=== PATIENT | female | born 1955 | race Caucasian/White ===

== ENCOUNTER → 2022-08-13 09:49 | Outpatient (BNVA) | payer MEDICARE, MEDICAID, SELFPAY | PROVIDERS: PCP Pediatrics; Visit Provider Neurological Surgery | DX: M48.061 Spinal stenosis, lumbar region without neurogenic claudication (principal); M54.16 Radiculopathy, lumbar region; M54.12 Radiculopathy, cervical region | CPT/HCPCS: 99202 ==

== ENCOUNTER 2022-10-09 08:53 | Day surgery (SDC) | payer MEDICARE, MEDICAID, SELFPAY ==
--- NOTE | 2022-09-26 | ECG_ITS ---
Test Reason : preop Blood Pressure : / mmHG Vent. Rate : 068 BPM Atrial Rate : 068 BPM P-R Int : 172 ms QRS Dur : 074 ms QT Int : 390 ms P-R-T Axes : 021 024 052 degrees QTc Int : 414 ms Normal sinus rhythm Normal ECG When compared with ECG of 26-APR-2015 17:50, No significant change was found Referred By: Karley Mohr Electronically Signed By:ISAC VILLA MD
[2022-09-26 12:11] VITALS: BP 117/73; PULSE 78; RESP 16; O2SAT 98
[2022-09-26 12:16] VITALS: BMI 31.6
--- NOTE | 2022-09-26 12:32 | HO.ANESPROP2 ---
Documented by User: Karley Mohr NP 10/08/22 11:45 HPI - Anesthesia Eval Consult details Narrative: 66yo F for Left L5 Laminectomy Lumbar Decompression (Foraminotomy), 10/09/22 [facility] left scar drainage from ear surgery since 2016. + pain, no swelling, redness. Eval by ENT 09/23/22. CT scan pending. Abx 3 weeks ago for URI/Conjunctivitis. No further symptoms. PMFSH Active Problems Active Problems: All Active Problems (Updated 09/26/22 @ 12:24 by Noemi Langston RN) Neuroforaminal stenosis of lumbar spine (Acute) Lumbar radiculopathy (Acute) Cervical radiculopathy (Acute) Past Medical History Medical History (Updated 09/26/22 @ 12:24 by Noemi Langston RN) Hemorrhoids HTN (hypertension) Low back pain Restless leg syndrome Swallowing difficulty Thyroid disease Family History Family history of problems with anesthesia: No Surgical History Surgical History (Updated 09/26/22 @ 12:05 by Noemi Langston RN) History of surgery Hx of bilateral cataract extraction Hx of colonoscopy S/P hysterectomy History of Problems with Anesthesia: No Social History Social History Are you a primary career representative to a significant other at home: No Do you presently have visiting nurse or other home services: No Patient Tobacco Use Status: Current everyday Tobacco user Tobacco use type: Cigarette Cigarette Packs Per Day: 1 Cigarettes Per Day: 20.0 Years Smoked: 55 Use of substances other than those prescribed or required for medical reasons: No Have you been hit, kicked, punched, or otherwise hurt by someone within the past year? If so, by whom?: No Are you DNR?: No Advance Directives: No Advance Directives Information Provided: Yes Advance Directives on File: No Recently lost weight without trying: No Nutrition Risks: Difficulty swallowing Meds Allergies Allergy/AdvReac Type Severity Reaction Status Date / Time No Known Allergies Allergy Verified 09/26/22 12:07 Home Medications Medication Instructions Recorded Confirmed Last Taken Type lisinopril 10 1 tab PO DAILY 09/26/22 09/26/22 Unknown History mg-hydrochlorothiazide 12.5 mg tablet methimazole 5 mg tablet 5 mg PO DAILY 09/26/22 09/26/22 Unknown History oxycodone 5 mg tablet 5 - 10 mg PO Q6H PRN Pain 09/26/22 09/26/22 Unknown History Exam Exam Date and Time: September 26, 2022 1232 Height,Weight and Vital Signs: Height 5 ft 1 in Weight 75.8 kg Last Vital Signs Pulse 78 09/26/22 12:11 Resp 16 09/26/22 12:11 BP 117/73 09/26/22 12:11 Pulse Ox 98 09/26/22 12:11 O2 Del Method Room Air 09/26/22 12:11 Pertinent Lab Results Pertinent Lab Results: Lab Results 09/26/22 09/26/22 Range/Units 12:57 12:57 WBC 11.4 H (4.8-10.8) X10*3/uL RBC 5.28 (4.20-5.50) X10*6/uL Hgb 15.3 (12.0-16.0) g/dl Hct 47.1 H (37.0-47.0) % MCV 89.2 (80.0-98.0) fL MCH 29.0 (27.0-33.0) pg MCHC 32.5 (31.0-35.0) g/dl RDW 14.5 (11.0-16.0) % Plt Count 301 (160-400) X10*3/uL MPV 10.1 (9.4-12.3) fL Absolute Nucleated RBC 0.000 (0.0-0.012) X10*3/uL Nucleated RBC % (auto) 0.0 (0.0-0.2) /100WBC Sodium 140 (135-145) mmol/L Potassium 4.0 (3.3-5.1) mmol/L Chloride 103 (96-108) mmol/L Carbon Dioxide 26 (22-29) mmol/L Anion Gap 15 (12-20) BUN 13 (9-16) mg/dL Creatinine 0.88 (0.5-1.4) mg/dL Estim Creat Clear Calc 57.7 Estimated GFR > 60 Random Glucose 91 (60-115) mg/dL Calcium 9.9 (8.4-10.2) mg/dL Narrative Narrative: EKG 08/2022 Vent. Rate : 068 BPM ? ? Atrial Rate : 068 BPM ?? P-R Int : 172 ms? QRS Dur : 074 ms ? ? QT Int : 390 ms ? ? ? P-R-T Axes : 021 024 052 degrees ?? QTc Int : 414 ms ? Normal sinus rhythm Normal ECG When compared with ECG of 26-APR-2015 17:50, No significant change was found Airway Mallampati Class: III TM Dist: >3cm Neck ROM: Limited (d/t pain) Denture: Upper Loose/Missing/Broken Teeth: Yes (Lower molars missing) Heart: RRR Lungs: CTAB Assessment and Plan Assessment Anesthesia Assessment: Anesthesia Plan Discussed, Smoking Cess. Discussed and PAT Visit Final Anesthetic Review Family History of Problems with Anesthesia: No History of Problems with Anesthesia: No Documented by User: Jamil Zambrano MD 10/09/22 09:03 [facility] Past Medical History Medical History (Updated 09/26/22 @ 12:24 by Noemi Langston RN) Hemorrhoids HTN (hypertension) Low back pain Restless leg syndrome Swallowing difficulty Thyroid disease Surgical History Surgical History (Updated 09/26/22 @ 12:05 by Noemi Langston RN) History of surgery Hx of bilateral cataract extraction Hx of colonoscopy S/P hysterectomy Social History Social History Are you a primary career representative to a significant other at home: No Do you presently have visiting nurse or other home services: No Patient Tobacco Use Status: Current everyday Tobacco user Tobacco use type: Cigarette Cigarette Packs Per Day: 1 Cigarettes Per Day: 20.0 Years Smoked: 55 Use of substances other than those prescribed or required for medical reasons: No Have you been hit, kicked, punched, or otherwise hurt by someone within the past year? If so, by whom?: No Are you DNR?: No Advance Directives: No Advance Directives Information Provided: Yes Advance Directives on File: No Recently lost weight without trying: No Nutrition Risks: Difficulty swallowing Meds Allergies Allergy/AdvReac Type Severity Reaction Status Date / Time No Known Allergies Allergy Verified 09/26/22 12:07 Home Medications Medication Instructions Recorded Confirmed Last Taken Type lisinopril 10 1 tab PO DAILY 09/26/22 09/26/22 Unknown History mg-hydrochlorothiazide 12.5 mg tablet methimazole 5 mg tablet 5 mg PO DAILY 09/26/22 09/26/22 Unknown History oxycodone 5 mg tablet 5 - 10 mg PO Q6H PRN Pain 09/26/22 09/26/22 Unknown History Assessment and Plan Final Anesthetic Review ASA Class: III Final Preanesthetic Review: No Changes in Pt Med Stat, Meds/Allgs Chart Reviewed, Consent Obtained/Reviewed and Anes Risks/Benef Reviewed Patient Risk: Intermediate Procedure Risk: Intermediate Anesthetic Plan Anesthetic Plan: GA and Agree w/ Assess. and Plan Disposition: Standard PACU
[2022-09-26 13:59] LABS: Hematocrit 47.1 % (37.0-47.0); Hemoglobin 15.3 g/dl (12.0-16.0); Mean Corpuscular HGB Conc 32.5 g/dl (31.0-35.0); Mean Corpuscular Volume 89.2 fL (80.0-98.0); Mean Platelet Volume 10.1 fL (9.4-12.3); Platelet Count 301 X10*3/uL (160-400); Red Blood Count 5.28 X10*6/uL (4.20-5.50); Red Cell Distribution Width 14.5 % (11.0-16.0); White Blood Count 11.4 X10*3/uL (4.8-10.8)
[2022-09-26 14:49] LABS: Anion Gap 15 (12-20); Blood Urea Nitrogen 13 mg/dL (9-16); Calcium 9.9 mg/dL (8.4-10.2); Carbon Dioxide 26 mmol/L (22-29); Chloride 103 mmol/L (96-108); Creatinine Clr Calc Pharmacy 57.7; Estimated Glomerular Filt Rate > 60; Glucose Random 91 mg/dL (60-115); Sodium 140 mmol/L (135-145)
[2022-10-09] VITALS (10 sets, daily range): BP systolic 115–132; BP diastolic 49–81; PULSE 56–89; RESP 16–20; TEMP 36.1–37; O2SAT 6–100; BMI 31.6
--- NOTE | ~2022-10-09 | FL_ITS ---
EXAMINATION: XR FLUOROSCOPY WITH IMAGES CLINICAL INFORMATION: L5 laminectomy lumbar decompression, left. COMPARISON: None available. TECHNIQUE: Fluoroscopy Supervised By: Dr. Ari Herrera. Fluoroscopy Time: 0.0 minutes. Cumulative Dose: 1.92 mGy. DAP: 0.429 Gycm2. Images: 2. FINDINGS: There are 2 lateral digital images of lumbar spine revealing posterior probe at the L5-S1 disc level. Visualized vertebral heights and disc heights are normal. FL/FL guidance in OR IMPRESSION: Posterior probe at the L5-S1 disc level. Fluoroscopy guidance was provided to referring physician during surgery.
--- OUTSIDE RECORDS SUMMARY | 2022-10-09 08:59 | XMS_ITS | Continuity of Care Document ---
Author Name Unknown Organization [facility] Address [address] [place] [address] Dr [address] [place] [address]- Care Team Providers Care Meter Attendant Name Role Phone Imelda Morris MD Primary Care Physician [place] [facility] [id number] Date(s): 05/26/22 - 06/02/[address] [place], [place] [address] Encounter Diagnosis Skin irritation(Discharge Diagnosis) - 05/26/22 Attending Physician: Armen Baker Referring Physician: Kylah DEVI, Brett Ugalde Allergies, Adverse Reactions, Alerts No Known Allergies Immunizations Given and Recorded Vaccine Date Status Refusal Reason tetanus/diphtheria/pertussis, acel(Tdap) 01/20/08 Given Medications ??? meclizine for vertigo ??? meclizine for vertigo, By Mouth, Refills 0, Maintenance, 10/04/19 14:19:00 EDT, Supply Start Date: 10/04/19 Status: Ordered Allopurinol 300 mg, By Mouth, Daily, Rx by [facility], Refills 0, Maintenance,07/13/15 8:58:38 Start Date: 07/13/15 Status: Ordered Flonase 50 mcg/inh nasal spray 1 sprays, Nares, Both, 2 times a day, # 16 Gm, 0 Refills, Maintenance, 03/10/19 13:40:00 EST, [place], [facility], 1 sprays Nares, Both 2 times a day, 160, cm, 03/10/19 13:16:00 EST, Height, 72.4, kg, 03/10/19 13:16:00 EST, Dry Weight Start Date: 03/10/19 Status: Ordered Golytely - oral powder for reconstitution See Instructions, complete on day before procedure, # 4,000 mL, 0 Refills, Maintenance, 05/21/20 9:09:00 EDT, REC Powder, [facility]/pharmacy #[id number], Partial fill upon patient request if the prescription is for a schedule II opioid drug., complete on day befo... Start Date: 05/21/20 Status: Ordered hydrochlorothiazide-lisinopril 12.5 mg-10 mg oral tablet 1 tablet, By Mouth, Daily, # 30 tablet, 5 Refills, Maintenance, 04/20/17 8:26:23, Tablet, 1 tablet By Mouth Daily Start Date: 04/20/17 Stop Date: 05/20/17 Status: Ordered hydrocortisone 2.5% topical cream 1 application, Topically, 2 times a day, for 14 days, # 30 Gm, 1 Refills, Acute 06/23/22 8:59:00 EDT, 05/26/22 8:59:00 EDT, Cream, [facility]/pharmacy #[id number], Partial fill upon patient request if the prescription is for a schedule II opioid drug., 1 applicati... Start Date: 05/26/22 Stop Date: 06/23/22 Status: Ordered loratadine 10 mg oral tablet 10 mg, 1, tablet, By Mouth, Daily, # 30 tablet, Refills 0, Tot. Refills 0, Maintenance, 07/06/17 13:16:32 EDT, Route to Pharmacy Electronically, [id number], [facility]/pharmacy #[id number] Start Date: 07/06/17 Stop Date: 08/05/17 Status: Ordered [place] 0.65% nasal spray 2 sprays, Nares, Both, 4 times a day, # 1 each, 0 Refills, Maintenance, 05/31/18 11:12:25 EDT, 2 sprays Nares, Both 4 times a day Start Date: 05/31/18 Status: Ordered Omeprazole = 20 mg, By Mouth, Daily, Rx by Dr. Jensen (GI), 0 Refills, Maintenance, 07/13/15 9:43:17 Start Date: 07/13/15 Status: Ordered oxyCODONE 5 mg oral capsule By Mouth, 0 Refills, Maintenance, 10/04/19 14:18:00 EDT, Partial fill upon patient request Start Date: 10/04/19 Status: Ordered Topamax 25 mg oral tablet 1 tablet = 25 mg, By Mouth, Daily, Rx by [facility], 0 Refills, Maintenance, 07/13/15 9:36:43 Start Date: 07/13/15 Status: Ordered Ventolin HFA 108 mcg/inh inhalation aerosol with adapter 2 puffs, Inhalation, Every 6 hours, PRN Wheezing/Shortness of Breath, # 1 each, 3 Refills, Maintenance, 05/18/17 10:19:04 Start Date: 05/18/17 Status: Ordered Voltaren 1% topical gel = 2 Gm, Topically, 4 times a day, # 100 Gm, 3 Refills, Maintenance, 11/23/19 9:08:00 EDT, Gel, [id number], 2 Gm Topically 4 times a day, 154.94, cm, 11/23/19 8:33:00 EDT, Height, 74.7, kg, 11/19/19 18:41:00 EDT, Dry Weight Start Date: 11/23/19 Status: Ordered Zithromax Z-Charlie 250 mg oral tablet 1 pack/packet, By Mouth, Once, as directed on package labeling, # 6 tablet, 0 Refills, Soft Stop, 10/02/20 10:44:00 EDT, Tablet, Partial fill upon patient request if the prescription is for a schedule II opioid drug. 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 Chronic back pain Confirmed Active Chronic headaches Confirmed Active Fibromyalgia Confirmed Active GERD (gastroesophageal reflux disease) Confirmed Active Gout Confirmed Active Hypertension Confirmed Active Prediabetes Confirmed Active Depression with anxiety Confirmed Active Obese class I Confirmed Active SALLY, refusing CPAP Confirmed Active Restless leg syndrome Confirmed Active Colonoscopy - due in 2018 Confirmed Active Tobacco use Confirmed Active Diagnosis Diagnosis Type Effective Dates Health Status inical Service Informant Skin irritation Discharge Diagnosis 05/26/22 Vital Signs Most recent to oldest [Reference Range]: 1 Height 154.9 cm (05/26/22 8:43 AM) Weight 77.6 kg (05/26/22 8:43 AM) Pulse Rate [55-90 bpm] 82 bpm (05/26/22 8:43 AM) Body Mass Index [18.5-24.99 kg/m2] 32.34 kg/m2 *>HHI* (05/26/22 8:43 AM) Blood Pressure [90-138/55-84 mm Hg] 127/ 68mm Hg (05/26/22 8:43 AM) Respiratory Rate [16-30 br/min] 17 br/mi n (05/26/22 8:43 AM) Temperature [96.8-100.4 DegF] 97.7 DegF (05/26/22 8:43 AM) Temperature Route Temporal (05/26/22 8:43 AM) Social History Social History Type Response Smoking Status Current some day smo ker; Type: Cigarettes; Other: quit 06/18/15; Number of years: 47; entered on: 10/10/15 Sex Patient Care team information Care Team Personnel Name: Gabrielle Albert RN Position: [facility] RN Member Role: Primary Care Nurse Name: Imelda Morris MD Position: [facility] Outreach Member Role: PCP Address: Address: [address] [place] [address]- Name: Sage Leon RN Position: [facility] RN Member Role: Primary Care Nurse Care Team Related Persons Name: CHRIS GLEASON Address: [place] [address]
--- OUTSIDE RECORDS SUMMARY | 2022-10-09 08:59 | XMS_ITS | Continuity of Care Document ---
Author Name Unknown Organization [facility] Address [address] [place] [address]- Care Team Providers Care Referral Rn Name Role Phone Imelda Morris MD [facility] Care [id number] Date(s): [facility]/05/[facility] - 08/12/19 [facility] [address] [place] [address]- [facility] Attending Physician: Lavern JAIN, Emile Cortes Referring Physician: Imelda Morris MD Allergies, Adverse Reactions, Alerts Substance Reaction Severity Status NKA Active Immunizations Given and Recorded Vaccine Date Status Refusal Reason tetanus/diphtheria/pertussis, acel(Tdap) 01/20/08 Given Medications Allopurinol 300 mg, By Mouth, Daily, Rx by [facility], Refills 0, Maintenance,07/13/15 8:58:38 Start Date: 07/13/15 Status: Ordered Azithromycin 5 Day Dose Pack 250 mg oral tablet 1 pack/packet, By Mouth, Once, # 6 tablet, 0 Refills, Soft Stop, 03/12/18 12:03:30 EST, Tablet Start Date: 03/12/18 Status: Ordered Buprenorphine See Instructions, 20 mg transdermal patch - changing every 7 days, 0 Refills, Maintenance, 198:41:31 EST Start Date: 01/17/19 Status: Ordered Flonase 50 mcg/inh nasal spray 1 sprays, Nares, Both, 2 times a day, # 16 Gm, 0 Refills, Maintenance, 03/10/19 13:40:00 EST, [place], [id number], 1 sprays Nares, Both 2 times a day, 160, cm, 03/10/19 13:16:00 EST, Height, 72.4, kg, 03/10/19 13:16:00 EST, Dry Weight Start Date: 03/10/19 Status: Ordered fluticasone 50 mcg/inh nasal spray 1 sprays, Nares, Both, 2 times a day, # 16 Gm, 11 Refills, Maintenance, 01/09/16 9:44:38, [place], 1 sprays Nares, Both 2 times a day Start Date: 01/09/16 Status: Ordered hydrochlorothiazide-lisinopril 12.5 mg-10 mg oral tablet 1 tablet, By Mouth, Daily, # 30 tablet, 5 Refills, Maintenance, 04/20/17 8:26:23, Tablet, 1 tablet By Mouth Daily Start Date: 04/20/17 Stop Date: 05/20/17 Status: Ordered loratadine 10 mg oral tablet 10 mg, 1, tablet, By Mouth, Daily, # 30 tablet, Refills 0, Tot. Refills 0, Maintenance, 07/06/17 13:16:32 EDT, Route to Pharmacy Electronically, [id number], [facility]/pharmacy #[id number] Start Date: 07/06/17 Stop Date: 08/05/17 Status: Ordered naproxen 500 mg oral tablet 1 tablet = 500 mg, By Mouth, 2 times a day, for 10 days, # 20 tablet, 0 Refills, Acute 08/15/19 15:19:00 EDT, 08/05/19 15:19:00 EDT, Tablet, [facility]/pharmacy #[id number], 160, cm, 08/05/19 15:04:00 EDT, Height, 72.4, kg, 03/10/19 13:16:00 EST, Dry Weight Start Date: 08/05/19 Stop Date: 08/15/19 Status: Ordered [place] 0.65% nasal spray 2 sprays, Nares, Both, 4 times a day, # 1 each, 0 Refills, Maintenance, 05/31/18 11:12:25 EDT, 2 sprays Nares, Both 4 times a day Start Date: 05/31/18 Status: Ordered Omeprazole = 20 mg, By Mouth, Daily, Rx by Dr. Jensen (GI), 0 Refills, Maintenance, 07/13/15 9:43:17 Start Date: 07/13/15 Status: Ordered Topamax 25 mg oral tablet 1 tablet = 25 mg, By Mouth, Daily, Rx by [facility], 0 Refills, Maintenance, 07/13/15 9:36:43 Start Date: 07/13/15 Status: Ordered Ventolin HFA 108 mcg/inh inhalation aerosol with adapter 2 puffs, Inhalation, Every 6 hours, PRN Wheezing/Shortness of Breath, # 1 each, 3 Refills, Maintenance, 05/18/17 10:19:04 Start Date: 05/18/17 Status: Ordered Problem List Condition Effective Dates Status Health Status Inform ant Warthin's tumor of parotid s /p resection(Confirmed) Active Chronic back pain(Confirmed) Active Chronic headaches(Confirmed) Active Fibromyalgia(Confirmed) Active GERD (gastroesophageal reflu x disease)(Confirmed) Active Gout(Confirmed) Active Hypertension(Confirmed) Active Prediabetes(Confirmed) Active Depression with anxiety(Confirmed) Active SALLY, refusing CPAP(Confirmed) Active Restless leg syndrome(Confirmed) Active Colonoscopy - due in 2018(Confirmed) Active Tobacco use(Confirmed) Active Vital Signs Most recent to oldest [Reference Range]: 1 Height 160.00 cm (08/05/19 3:04 PM) Oxygen Saturation [94-100 %] 98 % (08/05/19 3:04 PM) Pulse Rate [55-90 bpm] 88 bpm (08/05/19 3:04 PM) Blood Pressure [90-138/55-84 mm Hg] 104/ 66mm Hg (08/05/19 3:04 PM) Respiratory Rate [16-30 br/min] 20 br/mi n (08/05/19 3:04 PM) Temperature [96.8-100.4 DegF] 98.3 DegF (08/05/19 3:04 PM) Mode of Delivery (Oxygen) Room air (08/05/19 3:04 PM) Blood pressure sites Arm, left (08/05/19 3:04 PM) Temperature Route Temporal (08/05/19 3:04 PM) Social History Social History Type Response Smoking Status Current some day smo ker; Type: Cigarettes; Other: quit 06/18/15; Number of years: 47; entered on: 10/10/15 Sex
--- OUTSIDE RECORDS SUMMARY | 2022-10-09 08:59 | XMS_ITS | Continuity of Care Document ---
Author Name Unknown Organization [facility] Address [address] [place] [address]- Care Team Providers Care Farm Tractor Operator Name Role Phone Imelda Morris MD Primary Care Physician [place] [facility] [place](s): 10/02/20 - 10/09/20 [facility] [address] [place], [place] [address] Attending Physician: Stewart Casanova MD Referring Physician: Imelda Morris MD Allergies, Adverse [...] Maintenance,07/13/15 8:58:38 Start Date: 07/13/15 Status: Ordered codeine-guaifenesin 6.3 mg-100 mg/5 mL oral liquid 7.5 mL, By Mouth, Every 6 hours, PRN for cough, # 120 mL, 0 Refills, Acute 10/10/20 10:44:00 EDT, 10/02/20 10:43:00 EDT, Liquid, Partial fill upon patient request if the prescription is for a schedule II opioid drug. Start Date: 10/02/20 Stop Date: 10/10/20 Status: Ordered Flonase 50 mcg/inh nasal spray 1 sprays, Nares, Both, 2 times a day, # 16 Gm, 0 Refills, Maintenance, 03/10/19 13:40:00 EST, [place], [facility]/pharmacy #[id number], 1 sprays Nares, Both 2 times a day, 160, cm, 03/10/19 13:16:00 EST, Height, 72.4, kg, 03/10/19 13:16:00 EST, Dry Weight Start Date: 03/10/19 Status: Ordered Golytely - oral powder for reconstitution See Instructions, complete on day before procedure, # 4,000 mL, 0 Refills, Maintenance, 05/21/20 9:09:00 EDT, REC Powder, [facility]/pharmacy #[id number], Partial fill upon patient request if [...] 07/06/17 13:16:32 EDT, Route to Pharmacy Electronically, [id number], [id number] Start Date: 07/06/17 Stop Date: 08/05/17 Status: Ordered [place] 0.65% nasal spray 2 sprays, Nares, Both, [...] 25 mg, By Mouth, Daily, Rx by [facility], 0 Refills, [...] 3 Refills, Maintenance, 11/23/19 9:08:00 EDT, Gel, [facility]/pharmacy #[id number], 2 Gm Topically 4 times a [...] Date: 10/02/20 Status: Ordered Problem List Condition Effective Dates [...] oldest [Reference Range]: 1 Height 154.9 cm (10/02/20 10:25 AM) Oxygen Saturation [94-100 %] 100 % (10/02/20 10:25 AM) Pulse Rate [55-90 bpm] 76 bpm (10/02/20 10:25 AM) Blood Pressure [90-138/55-84 mm Hg] 118/ 77mm Hg (10/02/20 10:25 AM) Respiratory Rate [16-30 br/min] 20 br/mi n (10/02/20 10:25 AM) Temperature [96.8-100.4 DegF] 98.7 DegF (10/02/20 10:25 AM) Mode of Delivery (Oxygen) Room air (10/02/20 10:25 AM) Blood pressure sites Arm, left (10/02/20 10:25 AM) Temperature Route Temporal (10/02/20 10:25 AM) Social History Social History Type Response Smoking Status Current some day smo ker; Type: Cigarettes; Other: quit 06/18/15; Number of years: 47; entered on: 10/10/15 Sex
--- OUTSIDE RECORDS SUMMARY | 2022-10-09 08:59 | XMS_ITS | Continuity of Care Document ---
Author Name Unknown Organization [facility] Address [address] [place] [id number]- Care Team Providers Care Quantitative Software Engineer Name Role Phone Alexandra JAIN, Imelda Beckham Primary Care Physician [facility] [id number] Date(s): 11/30/19 - 12/30/19 [facility] [address] [place] [address] [facility] Attending Physician: James Johnson Admitting Physician: James Johnson Referring Physician: James Johnson Allergies, Adverse Reactions, Alerts Substance Reaction Severity Status NKA Active Immunizations Given and Recorded Vaccine Date Status Refusal Reason tetanus/diphtheria/pertussis, acel(Tdap) 01/20/08 Given Medications ??? meclizine for vertigo ??? meclizine for vertigo, By Mouth, Refills 0, Maintenance, 10/04/19 14:19:00 EDT, Supply Start Date: 10/04/19 Status: Ordered Allopurinol 300 mg, By Mouth, Daily, Rx by [facility], Refills 0, Maintenance,07/13/15 8:58:38 Start Date: 07/13/15 Status: Ordered Flonase 50 mcg/inh nasal spray 1 sprays, Nares, Both, 2 times a day, # 16 Gm, 0 Refills, Maintenance, 03/10/19 13:40:00 EST, [place], [id number], 1 sprays Nares, Both 2 times a day, 160, cm, 03/10/19 13:16:00 EST, Height, 72.4, kg, 03/10/19 13:16:00 EST, Dry Weight Start Date: 03/10/19 Status: Ordered hydrochlorothiazide-lisinopril 12.5 mg-10 mg oral tablet 1 tablet, By Mouth, Daily, # 30 tablet, 5 Refills, Maintenance, 04/20/17 8:26:23, Tablet, 1 tablet By Mouth Daily Start Date: 04/20/17 Stop Date: 05/20/17 Status: Ordered loratadine 10 mg oral tablet 10 mg, 1, tablet, By Mouth, Daily, # 30 tablet, Refills 0, Tot. Refills 0, Maintenance, 07/06/17 13:16:32 EDT, Route to Pharmacy Electronically, [id number], [facility]/pharmacy #[id number] Start Date: 07/06/17 Stop Date: 08/05/17 Status: Ordered [place] 0.65% nasal spray 2 sprays, Nares, Both, [...] 25 mg, By Mouth, Daily, Rx by [facility], 0 [...] 3 Refills, Maintenance, 11/23/19 9:08:00 EDT, Gel, [facility]/pharmacy #[id number], 2 Gm Topically 4 times a day, 154.94, cm, 11/23/19 8:33:00 EDT, Height, 74.7, kg, 11/19/19 18:41:00 EDT, Dry Weight Start Date: 11/23/19 Status: Ordered Problem List Condition Effective Dates Status Health Status Inform ant Warthin's tumor of parotid s /p resection(Confirmed) Active Chronic back pain(Confirmed) Active Chronic headaches(Confirmed) Active Fibromyalgia(Confirmed) Active GERD (gastroesophageal reflu x disease)(Confirmed) Active Gout(Confirmed) Active Hypertension(Confirmed) Active Prediabetes(Confirmed) Active Depression with anxiety(Confirmed) Active SALLY, refusing CPAP(Confirmed) Active Restless leg syndrome(Confirmed) Active Colonoscopy - due in 2017(Confirmed) Active Tobacco use(Confirmed) Active Social History Social History Type Response Smoking Status Current some day smo ker; Type: Cigarettes; Other: quit 06/18/15; Number of years: 47; entered on: 10/10/15 Sex
--- OUTSIDE RECORDS SUMMARY | 2022-10-09 08:59 | XMS_ITS | Continuity of Care Document ---
Author Name Unknown Organization [facility] ter Address [address] [place] [address]- Care Team Providers Care Virtual Classroom Manager Name Role Phone Imelda Morris MD Primary Care Physician Encounter [facility] Date(s): 08/01/19 - 03/01/[address] [id number] Attending Physician: Imelda Morris MD Admitting Physician: Imelda Morris MD Referring Physician: Imelda Morris MD Allergies, Adverse Reactions, Alerts Substance Reaction Severity Status NKA Active Immunizations Given and Recorded Vaccine Date Status Refusal Reason tetanus/diphtheria/pertussis, acel(Tdap) 01/20/08 Given Medications ??? meclizine for vertigo ??? meclizine for vertigo, By Mouth, Refills 0, Maintenance, 10/04/19 14:19:00 EDT, Supply Start Date: 10/04/19 Status: Ordered Allopurinol 300 mg, By Mouth, Daily, Rx by [facility], Refills 0, Maintenance,07/13/15 8:58:38 Start Date: 07/13/15 Status: Ordered Flonase 50 mcg/inh nasal spray 1 sprays, Nares, Both, 2 times a day, # 16 Gm, 0 Refills, Maintenance, 03/10/19 13:40:00 EST, [place], [id number], 1 sprays Nares, Both 2 [...] 07/06/17 13:16:32 EDT, Route to Pharmacy Electronically, [id number], [facility]/pharmacy #[id number] Start Date: 07/06/17 Stop Date: 08/05/17 Status: Ordered [place] 0.65% nasal spray 2 sprays, Nares, Both, [...] 25 mg, By Mouth, Daily, Rx by [facility], 0 Refills, Maintenance, 07/13/15 [...] 3 Refills, Maintenance, 11/23/19 9:08:00 EDT, Gel, [facility]/pharmacy #[id number], 2 Gm Topically 4 times a day, [...]
--- OUTSIDE RECORDS SUMMARY | 2022-10-09 08:59 | XMS_ITS | Continuity of Care Document ---
Author Name Unknown Organization [facility] Address [address] [place] [address] [address] [place] [address]- Care Team Providers Care Foxer Name Role Phone Alexandra JAIN, Imelda Beckham Primary Care Physician Encounter [facility] Date(s): 06/23/22 - 06/30/[address] [place] [address]- Encounter Diagnosis Hemorrhoids(Discharge Diagnosis) - 06/23/22 Attending Physician: Armen Baker Allergies, Adverse Reactions, Alerts No Known Allergies Immunizations Given and Recorded Vaccine Date Status Refusal Reason tetanus/diphtheria/pertussis, acel(Tdap) 01/20/08 Given Medications ??? meclizine for vertigo ??? meclizine for vertigo, By Mouth, Refills 0, Maintenance, 10/04/19 14:19:00 EDT, Supply Start Date: 10/04/19 Status: Ordered Allopurinol 300 mg, By Mouth, Daily, Rx by [facility], Refills 0, Maintenance,07/13/15 8:58:38 Start Date: 07/13/15 Status: Ordered Flonase 50 mcg/inh nasal spray 1 sprays, Nares, Both, 2 times a day, # 16 Gm, 0 Refills, Maintenance, 03/10/19 13:40:00 EST, [place], [id number], 1 sprays Nares, Both 2 times a day, 160, cm, 03/10/19 13:16:00 EST, Height, 72.4, kg, 03/10/19 13:16:00 EST, Dry Weight Start Date: 03/10/19 Status: Ordered Golytely - oral powder for reconstitution See Instructions, complete on day before procedure, # 4,000 mL, 0 Refills, Maintenance, 05/21/20 9:09:00 EDT, REC Powder, [facility]/pharmacy #[id number], Partial fill upon patient request if [...] 1 application, Topically, 2 times a day, # 20 Gm, 0 Refills, Maintenance, 06/25/22 11:01:00 EDT, Cream, [facility]/pharmacy #[id number], Partial fill upon patient request if the prescription is for a schedule II opioid drug., 1 application Topically 2 times a day,... Start Date: 06/25/22 Status: Ordered hydrocortisone topical 25 mg suppository 1 supp = 25 mg, Rectally, 2 times a day, for 14 days, # 28 supp, 0 Refills, Acute 07/07/22 9:29:00 EDT, 06/23/22 9:29:00 EDT, Suppository, [facility]/pharmacy #[id number], Partial fill upon patient request if theprescription is for a schedule II opioid drug., 154... Start Date: 06/23/22 Stop Date: 07/07/22 Status: Ordered loratadine 10 mg oral tablet 10 mg, 1, tablet, By Mouth, Daily, # 30 tablet, Refills 0, Tot. Refills 0, Maintenance, 07/06/17 13:16:32 EDT, Route to Pharmacy Electronically, [id number], [facility]/pharmacy #[id number] Start Date: 07/06/17 Stop Date: 08/05/17 Status: Ordered [place] 0.65% nasal spray 2 sprays, Nares, Both, [...] patient request Start Date: 10/04/19 Status: Ordered Proctocort 30 mg suppository 1 supp = 30 mg, Rectally, 2 times a day, for 14 days, # 28 supp, 0 Refills, Acute 07/07/22 11:02:00EDT, 06/23/22 11:02:00 EDT, Suppository, [facility]/pharmacy #[id number], Partial fill upon patient request if the prescription is for a schedule II opioid drug., 1... Start Date: 06/23/22 Stop Date: 07/07/22 Status: Ordered Topamax 25 mg oral tablet 1 tablet = 25 mg, By Mouth, Daily, Rx by [facility], 0 Refills, [...] 3 Refills, Maintenance, 11/23/19 9:08:00 EDT, Gel, [facility]/pharmacy #[id number], 2 Gm Topically 4 times a [...] Diagnosis Diagnosis Type Effective Dates Health Status Clini carter Service Informant Hemorrhoids Discharge Diagnosis 06/23/22 Vital Signs Most recent to oldest [Reference Range]: 1 Height 154.9 cm (06/23/22 8:53 AM) Weight 78 kg (06/23/22 8:53 AM) Pulse Rate [55-90 bpm] 81 bpm (06/23/22 8:53 AM) Body Mass Index [18.5-24.99 kg/m2] 32.51 kg/m2 *>HHI* (06/23/22 8:53 AM) Blood Pressure [90-138/55-84 mm Hg] 123/ 70mm Hg (06/23/22 8:53 AM) Respiratory Rate [16-30 br/min] 18 br/mi n (06/23/22 8:53 AM) Temperature [96.8-100.4 DegF] 96.7 DegF *L* (06/23/22 8:53 AM) Blood pressure sites Arm, right (06/23/22 8:53 AM) Temperature Route Temporal (06/23/22 8:53 AM) Weight Obtained Via Standing scale (06/23/22 8:53 AM) Social History Social History Type Response Smoking Status Current some day smo ker; Type: Cigarettes; Other: quit 06/18/15; Number of years: 48; entered on: 10/10/15 Sex Patient Care team information Care Team Personnel Name: Gabrielle Albert RN Position: [facility] RN Member Role: Primary Care Nurse Name: Imelda Morris MD Position: [facility] Outreach Member Role: PCP Address: Address: [address] [place] [address] Name: Carolyn BERRY, Sage Position: [facility] RN Member Role: Primary Care Nurse Care Team Related Persons Name: CHRIS GLEASON Address: [place] [address]
--- OUTSIDE RECORDS SUMMARY | 2022-10-09 08:59 | XMS_ITS | Continuity of Care Document ---
Author Name Unknown Organization [facility] ion Address [address] [place] [address]- Care Team Providers Care Music Internship Name Role Phone Imelda Morris MD Primary Care Physician Encounter [facility] Date(s): 12/20/19 - 02/19/[address] [address] Discharge Disposition: A-D/C Home Attending Physician: Imelda Morris MD Admitting Physician: [...] 300 mg, By Mouth, Daily, Rx by [facility], Refills 0, Maintenance,07/13/15 8:58:38 Start Date: 07/13/15 Status: Ordered Flonase 50 mcg/inh nasal spray 1 sprays, Nares, Both, 2 times a day, # 16 Gm, 0 Refills, Maintenance, 03/10/19 13:40:00 EST, [place], [id number], 1 sprays Nares, Both 2 [...] 07/06/17 13:16:32 EDT, Route to Pharmacy Electronically, [id number], [facility]/pharmacy #[id number] Start Date: 07/06/17 Stop Date: 08/05/17 Status: Ordered [place] 0.65% nasal spray 2 sprays, Nares, Both, [...] 25 mg, By Mouth, Daily, Rx by [facility], 0 Refills, Maintenance, [...] Refills, Maintenance, 11/23/19 9:08:00 EDT, Gel, [id number], 2 Gm Topically 4 times a day, [...]
--- OUTSIDE RECORDS SUMMARY | 2022-10-09 08:59 | XMS_ITS | Continuity of Care Document ---
Author Name Unknown Organization [facility] Address [address] [place] [address]- Care Team Providers Care Heel Shaver Name Role Phone Myrtle JAIN, Guille Lujan Primary Care Physician [phone] Encounter [facility] [id number] Date(s): 03/10/19 - 03/20/19 [facility] [address] [place] [address]- [facility] Attending Physician: James Johnson Admitting Physician: James Johnson Referring Physician: James Johnson Allergies, Adverse Reactions, Alerts Substance Reaction Severity Status NKA Active Immunizations Given and Recorded Vaccine Date Status Refusal Reason tetanus/diphtheria/pertussis, acel(Tdap) 01/20/08 Given Medications Allopurinol 300 mg, By Mouth, Daily, Rx by [facility], Refills 0, Maintenance,07/13/15 8:58:38 [...] Gm, 0 Refills, Maintenance, 03/10/19 13:40:00 EST, [place], [id number], 1 sprays Nares, Both 2 times a day, 160, cm, 03/10/19 13:16:00 EST, Height, 72.4, kg, 03/10/19 13:16:00 EST, Dry Weight Start Date: 03/10/19 Status: Ordered fluticasone 50 mcg/inh nasal spray 1 sprays, Nares, Both, 2 times a day, # 16 Gm, 11 Refills, Maintenance, 01/09/16 9:44:38, [place], 1 sprays Nares, Both 2 times a [...] 07/06/17 13:16:32 EDT, Route to Pharmacy Electronically, [id number], [facility]/pharmacy #[id number] Start Date: 07/06/17 Stop Date: 08/05/17 Status: Ordered [place] 0.65% nasal spray 2 sprays, Nares, Both, [...] 25 mg, By Mouth, Daily, Rx by [facility], 0 Refills, Maintenance, 07/13/15 [...] due in 2018(Confirmed) Active Tobacco use(Confirmed) Active Social History Social History Type Response Smoking Status Current some day smo ker; Type: Cigarettes; Other: quit 06/18/15; Number of years: 48; entered on: 10/10/15 Sex
--- OUTSIDE RECORDS SUMMARY | 2022-10-09 08:59 | XMS_ITS | Continuity of Care Document ---
Author Name Unknown Organization [facility] ter Address [address] [place] [address]- Care Team Providers Care Custom Clothier Name Role Phone Guille Iraheta MD Primary Care Physician [id number] Date(s): 04/17/19 - 04/17/[address] [address]- [facility] Encounter Diagnosis Chest pain(Final) - 04/17/19 Discharge Disposition: A-D/C Home Attending Physician: Bay Bentley MD Admitting Physician: Bay Bentley MD Referring Physician: Not on Staff, Referring MD Allergies, Adverse Reactions, Alerts Substance Reaction Severity Status NKA Active Immunizations Given and Recorded Vaccine Date Status Refusal Reason tetanus/diphtheria/pertussis, acel(Tdap) 01/20/08 Given Medications Allopurinol 300 mg, By Mouth, Daily, Rx by [facility], Refills 0, Maintenance,07/13/15 8:58:38 Start [...] Gm, 0 Refills, Maintenance, 03/10/19 13:40:00 EST, [place], [id number], 1 sprays Nares, Both 2 times a day, 160, cm, 03/10/19 13:16:00 EST, Height, 72.4, kg, 03/10/19 13:16:00 EST, Dry Weight Start Date: 03/10/19 Status: Ordered fluticasone 50 mcg/inh nasal spray 1 sprays, Nares, Both, 2 times a day, # 16 Gm, 11 Refills, Maintenance, 01/09/16 9:44:38, [place], 1 sprays Nares, Both 2 times a [...] 07/06/17 13:16:32 EDT, Route to Pharmacy Electronically, [id number], [id number] Start Date: 07/06/17 Stop Date: 08/05/17 Status: Ordered [place] 0.65% nasal spray 2 sprays, Nares, Both, [...] 25 mg, By Mouth, Daily, Rx by [facility], 0 Refills, [...] due in 2018(Confirmed) Active Tobacco use(Confirmed) Active Results Radiology Reports * Exam Date Time Procedure Performing Provider Status 04/17/19 12:30 PM Chest 2 Views Frontal and Lat Madonna Pantoja; Petr (Verified) Notes: (Chest 2 Views Frontal and Lat) Reason For Exam: Angina RESULT: Chest 2 Views Frontal and Lat Chest 2 Views Frontal and Lat 04/17/2019 Refer to EMR; Reason: Angina; Clinical Question(s): CHF; Hx of Present Illness: pt states lost son last month- states been having CP for 3 days - pt states taking care of (3) of son's kids 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 LUNGS AND PLEURA: Clear lungs. Normal pulmonary vascularity. No pleural effusion. No pneumothorax. HEART, MEDIASTINUM AND SOO: Heart is normal in size. Normal mediastinal and hilar contour. BONES AND SOFT TISSUES: No acute abnormality. IMPRESSION: No acute abnormality. WSN: [id number] Dictated By: Serene Burleson MD, I Dictated Date/Time: 04/17/19 12:39 p Reviewed By: Serene Burleson MD, I Signed By: Serene Burleson MD, I Signed Date/Time: 04/17/19 12:39 pm Transcribed By: SAUL Transcribed Date/Time: 04/17/19 12:38 pm Vital Signs Most recent to oldest [Reference Range]: 1 2 Oxygen Saturation [94-100 %] 100 % (04/17/19 4:12 PM) 99 % (04/17/19 9:43 AM) Pulse Rate [55-90 bpm] 88 bpm (04/17/19 4:12 PM) 101 bpm *H* (04/17/19 9:43 AM) Blood Pressure [90-138/55-84 mm Hg] 99/5 2mm Hg (04/17/19 4:12 PM) 110/73mm Hg (04/17/19 9:43 AM) Respiratory Rate [16-30 br/min] 22 br/mi n (04/17/19 9:43 AM) Temperature [96.8-100.4 DegF] 98.3 DegF (04/17/19 9:43 AM) Mode of Delivery (Oxygen) Room air (04/17/19 9:43 AM) Blood pressure sites Arm, left (04/17/19 9:43 AM) Temperature Route Oral (04/17/19 9:43 AM) Social History Social History Type Response Smoking Status Current some day smo ker; Type: Cigarettes; Other: quit 06/18/15; Number of years: 47; entered on: 10/10/15 Sex
--- OUTSIDE RECORDS SUMMARY | 2022-10-09 08:59 | XMS_ITS | Continuity of Care Document ---
Author Name Unknown Organization [facility] Address [address] [place] [address] [address] [place] [address]- Care Team Providers Care Middle School Sports Coach Name Role Phone Imelda Morris MD Primary Care Physician [id number] Date(s): 07/21/22 - 07/28/[address] [place] [address]- Attending Physician: Armen Baker Referring Physician: Imelda Morris MD Allergies, Adverse Reactions, Alerts No Known Allergies Immunizations Given and Recorded Vaccine Date Status Refusal Reason tetanus/diphtheria/pertussis, acel(Tdap) 01/20/08 Given Medications ??? meclizine for vertigo ??? meclizine for vertigo, By Mouth, Refills 0, Maintenance, 10/04/19 14:19:00 EDT, Supply Start Date: 10/04/19 Status: Ordered Allopurinol 300 mg, By Mouth, Daily, Rx by [facility], Refills 0, Maintenance,07/13/15 8:58:38 Start Date: 07/13/15 Status: Ordered Flonase 50 mcg/inh nasal spray 1 sprays, Nares, Both, 2 times a day, # 16 Gm, 0 Refills, Maintenance, 03/10/19 13:40:00 EST, [place], [id number], 1 sprays Nares, Both 2 times a day, 160, cm, 03/10/19 13:16:00 EST, Height, 72.4, kg, 03/10/19 13:16:00 EST, Dry Weight Start Date: 03/10/19 Status: Ordered Golytely - oral powder for reconstitution See Instructions, complete on day before procedure, # 4,000 mL, 0 Refills, Maintenance, 05/21/20 9:09:00 EDT, REC Powder, [facility]/pharmacy #[id number], Partial fill upon patient request if [...] 0 Refills, Maintenance, 06/25/22 11:01:00 EDT, Cream, [facility]/pharmacy #[id number], Partial fill upon patient request if the prescription is for a schedule II opioid drug., 1 application Topically 2 times a day,... Start Date: 06/25/22 Status: Ordered loratadine 10 mg oral tablet 10 mg, 1, tablet, By Mouth, Daily, # 30 tablet, Refills 0, Tot. Refills 0, Maintenance, 07/06/17 13:16:32 EDT, Route to Pharmacy Electronically, [id number], [id number] Start Date: 07/06/17 Stop Date: 08/05/17 Status: Ordered [place] 0.65% nasal spray 2 sprays, Nares, Both, [...] 25 mg, By Mouth, Daily, Rx by [facility], 0 Refills, [...] 3 Refills, Maintenance, 11/23/19 9:08:00 EDT, Gel, [facility]/pharmacy #[id number], 2 Gm Topically 4 times a [...] 2018 Confirmed Active Tobacco use Confirmed Active Vital Signs Most recent to oldest [Reference Range]: 1 Height 154.9 cm (07/21/22 9:11 AM) Weight 76.8 kg (07/21/22 9:11 AM) Pulse Rate [55-90 bpm] 90 bpm (07/21/22 9:11 AM) Body Mass Index [18.5-24.99 kg/m2] 32.01 kg/m2 *>HHI* (07/21/22 9:11 AM) Blood Pressure [90-138/55-84 mm Hg] 128/ 91mm Hg (07/21/22 9:11 AM) Temperature [96.8-100.4 DegF] 97.2 DegF (07/21/22 9:11 AM) Temperature Route Temporal (07/21/22 9:11 AM) Social History Social History Type Response Smoking Status Current some day smo ker; Type: Cigarettes; Other: quit 06/18/15; Number of years: 47; entered on: 10/10/15 Sex Patient Care team information Care Team Personnel Name: Gabrielle Albert RN Position: [facility] SN RN Member Role: Primary Care Nurse Name: Imelda Morris MD Position: [facility] Outreach Member Role: PCP Address: Address: [address] [place] [address]- Name: Sage Leon RN Position: [facility] RN Member Role: Primary Care Nurse Care Team Related Persons Name: CHRIS GLEASON Address: [address] [place] [address]
--- OUTSIDE RECORDS SUMMARY | 2022-10-09 08:59 | XMS_ITS | Continuity of Care Document ---
Author Name Unknown Organization [facility] Address [address] [place] [address] [address] [place] [address]- Care Team Providers Care Tax Services Intern Name Role Phone Alexandra JAIN, Imelda Beckham Primary Care Physician [id number] Date(s): 07/21/22 - 08/20/[address] [place], [place] [address] Attending Physician: Admgerson, James Admitting Physician: AdmtrJames Referring Physician: Admtr, James Allergies, Adverse Reactions, Alerts No Known Allergies Immunizations Given and Recorded Vaccine Date Status Refusal Reason tetanus/diphtheria/pertussis, acel(Tdap) 01/20/08 Given Medications ??? meclizine for vertigo ??? meclizine for vertigo, By Mouth, Refills 0, Maintenance, 10/04/19 14:19:00 EDT, Supply Start Date: 10/04/19 Status: Ordered Allopurinol 300 mg, By Mouth, Daily, Rx by [facility], Refills 0, Maintenance,07/13/15 8:58:38 Start Date: 07/13/15 Status: Ordered Flonase 50 mcg/inh nasal spray 1 sprays, Nares, Both, 2 times a day, # 16 Gm, 0 Refills, Maintenance, 03/10/19 13:40:00 EST, [place], [id number], 1 sprays Nares, Both 2 times a day, 160, cm, 03/10/19 13:16:00 EST, Height, 72.4, kg, 03/10/19 13:16:00 EST, Dry Weight Start Date: 03/10/19 Status: Ordered Golytely - oral powder for reconstitution See Instructions, complete on day before procedure, # 4,000 mL, 0 Refills, Maintenance, 05/21/20 9:09:00 EDT, REC Powder, [facility]/pharmacy #[id number], Partial fill upon patient [...] 0 Refills, Maintenance, 06/25/22 11:01:00 EDT, Cream, [facility]/pharmacy #[id number], Partial fill upon patient request if the prescription is for a schedule II opioid drug., 1 application Topically 2 times a day,... Start Date: 06/25/22 Status: Ordered loratadine 10 mg oral tablet 10 mg, 1, tablet, By Mouth, Daily, # 30 tablet, Refills 0, Tot. Refills 0, Maintenance, 07/06/17 13:16:32 EDT, Route to Pharmacy Electronically, [id number], [facility]/pharmacy #[id number] Start Date: 07/06/17 Stop Date: 08/05/17 Status: Ordered [place] 0.65% nasal spray 2 sprays, Nares, Both, [...] 25 mg, By Mouth, Daily, Rx by [facility], 0 Refills, Maintenance, [...] 2018 Confirmed Active Tobacco use Confirmed Active Social History Social History Type Response Smoking Status Current some day smo ker; Type: Cigarettes; Other: quit 06/18/15; Number of years: 47; entered on: 10/10/15 Sex Patient Care team information Care Team Personnel Name: Gabrielle Albert RN Position: [facility] RN Member Role: Primary Care Nurse Name: Imelda Morris MD Position: [facility] Outreach Member Role: PCP Address: Address: [address] [place] [address] [address] [place] [address]- Name: Carolyn BERRY, Sage Position: [facility] SN RN Member Role: Primary Care Nurse Care Team Related Persons Name: CHRIS GLEASON Address: [address] [place] [address]
--- OUTSIDE RECORDS SUMMARY | 2022-10-09 08:59 | XMS_ITS | Continuity of Care Document ---
Author Name Unknown Organization [facility] Address [address] [place] [address]- Care Team Providers Care Pot Runner Name Role Phone Alexandra JAIN, Imelda Beckham Primary Care Physician En[place] [facility] Date(s): 10/02/20 - 11/01/20 [facility] [address] [place], [place] [address] Attending Physician: James Johnson Admitting Physician: AdmJames nieto Referring Physician: Admtr, Ar8 Allergies, Adverse Reactions, Alerts Substance Reaction Severity Status NKA Active Immunizations Given and Recorded Vaccine Date Status Refusal Reason tetanus/diphtheria/pertussis, acel(Tdap) 01/20/08 Given Medications ??? meclizine for vertigo ??? meclizine for vertigo, By Mouth, Refills 0, Maintenance, 10/04/19 14:19:00 EDT, Supply Start Date: 10/04/19 Status: Ordered Allopurinol 300 mg, By Mouth, Daily, Rx by [facility], Refills 0, Maintenance,07/13/15 8:58:38 Start Date: 07/13/15 Status: Ordered Flonase 50 mcg/inh nasal spray 1 sprays, Nares, Both, 2 times a day, # 16 Gm, 0 Refills, Maintenance, 03/10/19 13:40:00 EST, [place], [id number], 1 sprays Nares, Both 2 times a day, 160, cm, 03/10/19 13:16:00 EST, Height, 72.4, kg, 03/10/19 13:16:00 EST, Dry Weight Start Date: 03/10/19 Status: Ordered Golytely - oral powder for reconstitution See Instructions, complete on day before procedure, # 4,000 mL, 0 Refills, Maintenance, 05/21/20 9:09:00 EDT, REC Powder, [facility]/pharmacy #[id number], Partial fill upon patient request if the [...] 07/06/17 13:16:32 EDT, Route to Pharmacy Electronically, [id number], [facility]/pharmacy #[id number] Start Date: 07/06/17 Stop Date: 08/05/17 Status: Ordered [place] 0.65% nasal spray 2 sprays, Nares, Both, [...] 25 mg, By Mouth, Daily, Rx by [facility], 0 Refills, [...]
--- OUTSIDE RECORDS SUMMARY | 2022-10-09 08:59 | XMS_ITS | Continuity of Care Document ---
Author Name Unknown Organization [facility] ter Address [address] [place] [address]- Care Team Providers Care Transformer Shop Supervisor Name Role Phone Alexandra JAIN, Imelda Beckham Primary Care Physician Encounter [facility] Date(s): 09/17/20 - 09/17/[address] [address] Discharge Disposition: A-D/C Home Attending Physician: Jovi Fermin MD Admitting Physician: Jovi Fermin MD Referring Physician: Jovi Fermin MD Allergies, Adverse Reactions, Alerts Substance Reaction Severity Status NKA Active Immunizations Given and Recorded Vaccine Date Status Refusal Reason tetanus/diphtheria/pertussis, acel(Tdap) 01/20/08 Given Medications ??? meclizine for vertigo ??? meclizine for vertigo, By Mouth, Refills 0, Maintenance, 10/04/19 14:19:00 EDT, Supply Start Date: 10/04/19 Status: Ordered Allopurinol 300 mg, By Mouth, Daily, Rx by [facility] Rhe[facility], Refills 0, Maintenance,07/13/15 8:58:38 Start Date: 07/13/15 Status: Ordered Flonase 50 mcg/inh nasal spray 1 sprays, Nares, Both, 2 times a day, # 16 Gm, 0 Refills, Maintenance, 03/10/19 13:40:00 EST, [place], [id number], 1 sprays Nares, Both 2 times a day, 160, cm, 03/10/19 13:16:00 EST, Height, 72.4, kg, 03/10/19 13:16:00 EST, Dry Weight Start Date: 03/10/19 Status: Ordered Golytely - oral powder for reconstitution See Instructions, complete on day before procedure, # 4,000 mL, 0 Refills, Maintenance, 05/21/20 9:09:00 EDT, REC Powder, [facility]/pharmacy #[id number], Partial fill upon patient request if the [...] 07/06/17 13:16:32 EDT, Route to Pharmacy Electronically, [id number], [facility]/pharmacy #[id number] Start Date: 07/06/17 Stop Date: 08/05/17 Status: Ordered [place] 0.65% nasal spray 2 sprays, Nares, Both, [...] 25 mg, By Mouth, Daily, Rx by [facility], 0 Refills, [...] due in 2018(Confirmed) Active Tobacco use(Confirmed) Active Procedures Procedure Date Related Diagnosis Body Site Status Colonoscopy 09/17/20 Completed Esophagogastroduodenoscopy and biopsy 09/17/20 Completed Vital Signs Most recent to oldest [Reference Range]: 1 2 3 Height 154.9 cm (09/17/20 2:17 PM) Weight 70.5 kg (09/17/20 2:17 PM) Oxygen Saturation [94-100 %] 100 % (09/17/20 4:09 PM) 100 % (09/17/20 4:01 PM) 100 % (09/17/20 2:17 PM) Pulse Rate [55-90 bpm] 79 bpm (09/17/20 2:17 PM) Body Mass Index [18.5-24.99] 29.38 *H* (09/17/20 2:17 PM) Blood Pressure [90-138/55-84 mm Hg] 123/76mm Hg (09/17/20 4:09 PM) 104/52mm Hg (09/17/20 4:01 PM) 121/60mm Hg (09/17/20 2:17 PM) Respiratory Rate [16-30 br/min] 17 br/min (09/17/20 4:09 PM) 16 br/min (09/17/20 4:01 PM) 18 br/min (09/17/20 2:17 PM) Temperature [96.8-100.4 DegF] 98.5 DegF (09/17/20 2:17 PM) Mode of Delivery (Oxygen) Room air (09/17/20 4:09 PM) Room air (09/17/20 4:01 PM) Room air (09/17/20 2:17 PM) Temperature Route Temporal (09/17/20 2:17 PM) Social History Social History Type Response Smoking Status Current some day smo ker; Type: Cigarettes; Other: quit 06/18/15; Number of years: 47; entered on: 10/10/15 Sex
--- OUTSIDE RECORDS SUMMARY | 2022-10-09 08:59 | XMS_ITS | Continuity of Care Document ---
Author Name Unknown Organization [facility] Address [address] [place] [address] [address]ri [address] [place] [address]- Care Team Providers Care Patent Searcher Name Role Phone Alexandra JAIN, Imelda Beckham Primary Care Physician En[place] [facility] Date(s): 06/23/22 - 07/23/[address] [place], [place] [address] Allergies, Adverse Reactions, Alerts No Known Allergies Immunizations Given and Recorded Vaccine Date Status Refusal Reason tetanus/diphtheria/pertussis, acel(Tdap) 01/20/08 Given Medications ??? meclizine for vertigo ??? meclizine for vertigo, By Mouth, Refills 0, Maintenance, 10/04/19 14:19:00 EDT, Supply Start Date: 10/04/19 Status: Ordered Allopurinol 300 mg, By Mouth, Daily, Rx by [facility] Rheumat[facility], Refills 0, Maintenance,07/13/15 8:58:38 Start Date: 07/13/15 Status: Ordered Flonase 50 mcg/inh nasal spray 1 sprays, Nares, Both, 2 times a day, # 16 Gm, 0 Refills, Maintenance, 03/10/19 13:40:00 EST, [place], [id number], 1 sprays Nares, Both 2 times a day, 160, cm, 03/10/19 13:16:00 EST, Height, 72.4, kg, 03/10/19 13:16:00 EST, Dry Weight Start Date: 03/10/19 Status: Ordered Golytely - oral powder for reconstitution See Instructions, complete on day before procedure, # 4,000 mL, 0 Refills, Maintenance, 05/21/20 9:09:00 EDT, REC Powder, [facility]/pharmacy #[id number], Partial fill upon patient request if [...] 0 Refills, Maintenance, 06/25/22 11:01:00 EDT, [place], [facility]/pharmacy #[id number], Partial fill upon patient request if the prescription is for a schedule II opioid drug., 1 application Topically 2 times a day,... Start Date: 06/25/22 Status: Ordered loratadine 10 mg oral tablet 10 mg, 1, tablet, By Mouth, Daily, # 30 tablet, Refills 0, Tot. Refills 0, Maintenance, 07/06/17 13:16:32 EDT, Route to Pharmacy Electronically, [id number], [id number] Start Date: 07/06/17 Stop Date: 08/05/17 Status: Ordered [place] 0.65% nasal spray 2 sprays, Nares, Both, [...] Team Personnel Name: Gabrielle Albert RN Position: [facility] SN RN Member Role: Primary Care Nurse Name: Imelda Morris MD Position: [facility] Outreach Member Role: PCP Address: Address: [address] [place] [address]- [place] Name: Carolyn BERRY, Sage Position: [facility] RN Member Role: Primary Care Nurse Care Team Related Persons Name: CHRIS GLEASON Address: [place] [address]
--- OUTSIDE RECORDS SUMMARY | 2022-10-09 08:59 | XMS_ITS | Continuity of Care Document ---
Author Name Unknown Organization [facility] Address [address] [place] [address]- Care Team Providers Care Acquisition Advisor Name Role Phone Alexandra JAIN, Imelda Beckham Primary Care Physician [id number] Date(s): 12/30/21 - 01/29/[address] [address] Attending Physician: James Johnson Admitting Physician: James Johnson Referring Physician: AdmJames nieto Allergies, Adverse Reactions, Alerts No Known Allergies Immunizations Given and Recorded Vaccine Date Status Refusal Reason tetanus/diphtheria/pertussis, acel(Tdap) 01/20/08 Given Medications ??? meclizine for vertigo ??? meclizine for vertigo, By Mouth, Refills 0, Maintenance, 10/04/19 14:19:00 EDT, Supply Start Date: 10/04/19 Status: Ordered Allopurinol 300 mg, By Mouth, Daily, Rx by [facility] Rheumat[facility], Refills 0, Maintenance,07/13/15 8:58:38 Start Date: 07/13/15 Status: Ordered Flonase 50 mcg/inh nasal spray 1 sprays, Nares, Both, 2 times a day, # 16 Gm, 0 Refills, Maintenance, 03/10/19 13:40:00 EST, [place], [id number], 1 sprays Nares, Both 2 times a day, 160, cm, 03/10/19 13:16:00 EST, Height, 72.4, kg, 03/10/19 13:16:00 EST, Dry Weight Start Date: 03/10/19 Status: Ordered Golytely - oral powder for reconstitution See Instructions, complete on day before procedure, # 4,000 mL, 0 Refills, Maintenance, 05/21/20 9:09:00 EDT, REC Powder, [facility]/pharmacy #[id number], Partial fill upon patient request if the [...] 07/06/17 13:16:32 EDT, Route to Pharmacy Electronically, [id number], [facility]/pharmacy #[id number] Start Date: 07/06/17 Stop Date: 08/05/17 Status: Ordered [place] 0.65% nasal spray 2 sprays, Nares, Both, [...] 25 mg, By Mouth, Daily, Rx by [facility], 0 Refills, Maintenance, [...] Confirmed Active Depression with anxiety Confirmed Active SALLY, refusing CPAP Confirmed Active [...] Care Nurse Name: Imelda Morris MD Position: S Outreach Member Role: PCP Address: Address: [address] [place] [address]- Name: Sage Leon RN Position: [facility] RN Member Role: Primary Care Nurse Care Team Related Persons Name: CHRIS GLEASON Address: home [address] [place] [address]
--- OUTSIDE RECORDS SUMMARY | 2022-10-09 09:00 | XMS_ITS | Continuity of Care Document ---
Author Name Unknown Organization [facility] ter Address [address] [place] [address]- Care Team Providers Care Director Occupational Name Role Phone Alexandra JAIN, Imelda Beckham Primary Care Physician En[place] [facility] Date(s): 02/06/20 - 03/16/[address] [address] Attending Physician: Omero Robledo MD Admitting Physician: Omero Robledo MD Referring Physician: Omero Robledo MD Allergies, Adverse Reactions, Alerts Substance Reaction Severity Status NKA Active Immunizations Given and Recorded Vaccine Date Status Refusal Reason tetanus/diphtheria/pertussis, acel(Tdap) 01/20/08 Given Medications ??? meclizine for vertigo ??? meclizine for vertigo, By Mouth, Refills 0, Maintenance, 10/04/19 14:19:00 EDT, Supply Start Date: 10/04/19 Status: Ordered Allopurinol 300 mg, By Mouth, Daily, Rx by [facility], Refills 0, Maintenance,07/13/15 8:58:38 Start Date: 07/13/15 Status: Ordered Flonase 50 mcg/inh nasal spray 1 sprays, Nares, Both, 2 times a day, # 16 Gm, 0 Refills, Maintenance, 03/10/19 13:40:00 EST, [place], [id number], 1 sprays Nares, Both 2 [...] 07/06/17 13:16:32 EDT, Route to Pharmacy Electronically, [id number], [facility]/pharmacy #[id number] Start Date: 07/06/17 Stop Date: 08/05/17 Status: Ordered [place] 0.65% nasal spray 2 sprays, Nares, Both, [...] 25 mg, By Mouth, Daily, Rx by [facility], 0 Refills, [...] 3 Refills, Maintenance, 11/23/19 9:08:00 EDT, [place], [facility]/pharmacy #[id number], 2 Gm Topically 4 times a day, [...]
--- OUTSIDE RECORDS SUMMARY | 2022-10-09 09:00 | XMS_ITS | Continuity of Care Document ---
Author Name Unknown Organization [facility] Address [address] [place] [address]- Care Team Providers Care Jewelry Casting Model Maker Apprentice Name Role Phone Guille Iraheta MD Primary Care Physician [phone] En[place] [facility] [place] [id number] Date(s): 03/10/19 - 03/17/19 [facility] [address] [place] [address]- [facility] Attending Physician: Lavern JAIN, Emile Cortes Referring Physician: Guille Iraheta MD Allergies, Adverse Reactions, Alerts Substance Reaction Severity Status NKA Active Immunizations Given and Recorded Vaccine Date Status Refusal Reason tetanus/diphtheria/pertussis, acel(Tdap) 01/20/08 Given Medications Allopurinol 300 mg, By Mouth, Daily, Rx by [facility] Rheumat[facility], Refills 0, Maintenance,07/13/15 8:58:38 Start [...] Gm, 0 Refills, Maintenance, 03/10/19 13:40:00 EST, [place], [id number], 1 sprays Nares, Both 2 times a day, 160, cm, 03/10/19 13:16:00 EST, Height, 72.4, kg, 03/10/19 13:16:00 EST, Dry Weight Start Date: 03/10/19 Status: Ordered fluticasone 50 mcg/inh nasal spray 1 sprays, Nares, Both, 2 times a day, # 16 Gm, 11 Refills, Maintenance, 01/09/16 9:44:38, [place], 1 sprays Nares, Both 2 times a [...] 07/06/17 13:16:32 EDT, Route to Pharmacy Electronically, [id number], [facility]/pharmacy #[id number] Start Date: 07/06/17 Stop Date: 08/05/17 Status: Ordered [place] 0.65% nasal spray 2 sprays, Nares, Both, [...] oldest [Reference Range]: 1 Height 160.00 cm (03/10/19 1:16 PM) Oxygen Saturation [94-100 %] 100 % (03/10/19 1:16 PM) Pulse Rate [55-90 bpm] 83 bpm (03/10/19 1:16 PM) Blood Pressure [90-138/55-84 mm Hg] 107/ 71mm Hg (03/10/19 1:16 PM) Respiratory Rate [16-30 br/min] 18 br/mi n (03/10/19 1:16 PM) Temperature [96.8-100.4 DegF] 98.3 DegF (03/10/19 1:16 PM) Mode of Delivery (Oxygen) Room air (03/10/19 1:16 PM) Blood pressure sites Arm, right (03/10/19 1:16 PM) Temperature Route Oral (03/10/19 1:16 PM) Dry Weight 72.4 kg (03/10/19 1:16 PM) Dry Weight Obtained Via Standing scale (03/10/19 1:16 PM) Social History Social History Type Response Smoking Status Current some day smo ker; Type: Cigarettes; Other: quit 06/18/15; Number of years: 47; entered on: 10/10/15 Sex
--- OUTSIDE RECORDS SUMMARY | 2022-10-09 09:00 | XMS_ITS | Continuity of Care Document ---
Author Name Unknown Organization [facility] Address [address] [place] [address]- Care Team Providers Care House Designer Name Role Phone Alexandra JAIN, Imelda Beckham Primary Care Physician [id number] Date(s): 12/24/21 - 01/29/[address] [address] Attending Physician: Paul Edouard MD Admitting Physician: Paul Edouard MD Referring Physician: Paul Edouard MD Allergies, Adverse Reactions, Alerts No Known Allergies Immunizations Given and Recorded Vaccine Date Status Refusal Reason tetanus/diphtheria/pertussis, acel(Tdap) 01/20/08 Given Medications ??? meclizine for vertigo ??? meclizine for vertigo, By Mouth, Refills 0, Maintenance, 10/04/19 14:19:00 EDT, Supply Start Date: 10/04/19 Status: Ordered Allopurinol 300 mg, By Mouth, Daily, Rx by [facility], Refills 0, Maintenance,07/13/15 8:58:38 Start Date: 07/13/15 Status: Ordered Flonase 50 mcg/inh nasal spray 1 sprays, Nares, Both, 2 times a day, # 16 Gm, 0 Refills, Maintenance, 03/10/19 13:40:00 EST, [place], [id number], 1 sprays Nares, Both 2 times a day, 160, cm, 03/10/19 13:16:00 EST, Height, 72.4, kg, 03/10/19 13:16:00 EST, Dry Weight Start Date: 03/10/19 Status: Ordered Golytely - oral powder for reconstitution See Instructions, complete on day before procedure, # 4,000 mL, 0 Refills, Maintenance, 05/21/20 9:09:00 EDT, REC Powder, [facility]/pharmacy #[id number], Partial fill upon patient request if the [...] 07/06/17 13:16:32 EDT, Route to Pharmacy Electronically, [id number], [facility]/pharmacy #[id number] Start Date: 07/06/17 Stop Date: 08/05/17 Status: Ordered [place] 0.65% nasal spray 2 sprays, Nares, Both, [...] 25 mg, By Mouth, Daily, Rx by [facility], 0 Refills, [...] S Outreach Member Role: PCP Address: Address: [address] [place] [address]- Name: Sage Leon RN Position: [facility] RN Member Role: Primary Care Nurse Care Team Related Persons Name: CHRIS GLEASON Address: home [address] [place] [address]
--- OUTSIDE RECORDS SUMMARY | 2022-10-09 09:00 | XMS_ITS | Continuity of Care Document ---
Author Name Unknown Organization [facility] Address [address] [place] [address] [address] [place] [address]- Care Team Providers Care Fashion Journalist Name Role Phone Imelda Morris MD Primary Care Physician Encounter [facility] [place] Date(s): 08/25/22 - 09/24/[address] [place], [place] [address] Attending Physician: James Johnson Admitting Physician: Admtr, James Referring Physician: Admtr, Ar8 Allergies, Adverse Reactions, Alerts No Known Allergies Immunizations Given and Recorded Vaccine Date Status Refusal Reason tetanus/diphtheria/pertussis, acel(Tdap) 01/20/08 Given Medications ??? meclizine for vertigo ??? meclizine for vertigo, By Mouth, Refills 0, Maintenance, 10/04/19 14:19:00 EDT, Supply Start Date: 10/04/19 Status: Ordered Allopurinol 300 mg, By Mouth, Daily, Rx by [facility] Rhe[facility], Refills 0, Maintenance,07/13/15 8:58:38 Start Date: 07/13/15 Status: Ordered Flonase 50 mcg/inh nasal spray 1 sprays, Nares, Both, 2 times a day, # 16 Gm, 0 Refills, Maintenance, 03/10/19 13:40:00 EST, [place], [id number], 1 sprays Nares, Both 2 times a day, 160, cm, 03/10/19 13:16:00 EST, Height, 72.4, kg, 03/10/19 13:16:00 EST, Dry Weight Start Date: 03/10/19 Status: Ordered Golytely - oral powder for reconstitution See Instructions, complete on day before procedure, # 4,000 mL, 0 Refills, Maintenance, 05/21/20 9:09:00 EDT, REC Powder, [facility]/pharmacy #[id number], Partial fill upon patient request [...] 0 Refills, Maintenance, 06/25/22 11:01:00 EDT, Cream, [facility]/pharmacy #[id number], Partial fill upon patient request if the prescription is for a schedule II opioid drug., 1 application Topically 2 times a day,... Start Date: 06/25/22 Status: Ordered loratadine 10 mg oral tablet 10 mg, 1, tablet, By Mouth, Daily, # 30 tablet, Refills 0, Tot. Refills 0, Maintenance, 07/06/17 13:16:32 EDT, Route to Pharmacy Electronically, [id number], [id number] Start Date: 07/06/17 Stop Date: 08/05/17 Status: Ordered [place] 0.65% nasal spray 2 sprays, Nares, Both, [...] mg, By Mouth, Daily, Rx by [facility], 0 Refills, [...] Team Personnel Name: Gabrielle Albert RN Position: [facility] SN RN Member Role: Primary Care Nurse Name: Imelda Morris MD Position: [facility] Outreach Member Role: PCP Address: Address: [address] [place] [address] Name: Carolyn BERRY, Sage Position: [facility] RN Member Role: Primary Care Nurse Care Team Related Persons Name: CHRIS GLEASON Address: home [address] [place] [address]
--- OUTSIDE RECORDS SUMMARY | 2022-10-09 09:00 | XMS_ITS | Continuity of Care Document ---
Author Name Unknown Organization [facility] Address [address] [place] [address] [address] [place] [address]- Care Team Providers Care Boiling Off Winder Name Role Phone Imelda Morris MD Primary Care Physician [id number] Date[facility] 06/04/22 - 09/24/[address] [place], [place] [address] Attending Physician: Armen Baker Referring Physician: Imelda Morris MD Allergies, Adverse Reactions, Alerts No Known Allergies Immunizations Given and Recorded Vaccine Date Status Refusal Reason tetanus/diphtheria/pertussis, acel(Tdap) 01/20/08 Given Medications ??? meclizine for vertigo ??? meclizine for vertigo, By Mouth, Refills 0, Maintenance, 10/04/19 14:19:00 EDT, Supply Start Date: 10/04/19 Status: Ordered Allopurinol 300 mg, By Mouth, Daily, Rx by [facility] Rheumat[facility], Refills 0, Maintenance,07/13/15 8:58:38 Start Date: 07/13/15 Status: Ordered Flonase 50 mcg/inh nasal spray 1 sprays, Nares, Both, 2 times a day, # 16 Gm, 0 Refills, Maintenance, 03/10/19 13:40:00 EST, [place], [id number], 1 sprays Nares, Both 2 times a day, 160, cm, 03/10/19 13:16:00 EST, Height, 72.4, kg, 03/10/19 13:16:00 EST, Dry Weight Start Date: 03/10/19 Status: Ordered Golytely - oral powder for reconstitution See Instructions, complete on day before procedure, # 4,000 mL, 0 Refills, Maintenance, 05/21/20 9:09:00 EDT, REC Powder, [facility]/pharmacy #[id number], Partial fill upon patient request [...] 0 Refills, Maintenance, 06/25/22 11:01:00 EDT, Cream, [facility]/pharmacy #[id number], Partial fill upon patient request if the prescription is for a schedule II opioid drug., 1 application Topically 2 times a day,... Start Date: 06/25/22 Status: Ordered loratadine 10 mg oral tablet 10 mg, 1, tablet, By Mouth, Daily, # 30 tablet, Refills 0, Tot. Refills 0, Maintenance, 07/06/17 13:16:32 EDT, Route to Pharmacy Electronically, [id number], [id number] Start Date: 07/06/17 Stop Date: 08/05/17 Status: Ordered [place] 0.65% nasal spray 2 sprays, Nares, Both, [...] mg, By Mouth, Daily, Rx by [facility], 0 Refills, Maintenance, [...] Team Personnel Name: Gabrielle Albert RN Position: [facility] SN RN Member Role: Primary Care Nurse Name: Imelda Morris MD Position: [facility] Outreach Member Role: PCP Address: Address: [address] [place] [address] Name: Carolyn BERRY, Sage Position: [facility] RN Member Role: Primary Care Nurse Care Team Related Persons Name: CHRIS GLEASON Address: [place] [address]
--- OUTSIDE RECORDS SUMMARY | 2022-10-09 09:00 | XMS_ITS | Continuity of Care Document ---
Author Name Unknown Organization [facility] Address [address] [place] [address]- Care Team Providers Care Strip Stamp Straightener Name Role Phone Alexandra JAIN, Imelda Beckham Primary Care Physician [place] [facility]s): 08/05/19 - 09/04/19 [facility] [address] [place] [address]- [facility] Attending Physician: James Johnson Admitting Physician: James Johnson Referring Physician: James Johnson Allergies, Adverse Reactions, Alerts Substance Reaction Severity Status NKA Active Immunizations Given and Recorded Vaccine Date Status Refusal Reason tetanus/diphtheria/pertussis, acel(Tdap) 01/20/08 Given Medications Allopurinol 300 mg, By Mouth, Daily, Rx by [facility], Refills 0, Maintenance,07/13/15 8:58:38 [...] Gm, 0 Refills, Maintenance, 03/10/19 13:40:00 EST, [place], [id number], 1 sprays Nares, Both 2 times a day, 160, cm, 03/10/19 13:16:00 EST, Height, 72.4, kg, 03/10/19 13:16:00 EST, Dry Weight Start Date: 03/10/19 Status: Ordered fluticasone 50 mcg/inh nasal spray 1 sprays, Nares, Both, 2 times a day, # 16 Gm, 11 Refills, Maintenance, 01/09/16 9:44:38, [place], 1 sprays Nares, Both 2 times a [...] 07/06/17 13:16:32 EDT, Route to Pharmacy Electronically, [id number], [facility]/pharmacy #[id number] Start Date: 07/06/17 Stop Date: 08/05/17 Status: Ordered [place] 0.65% nasal spray 2 sprays, Nares, Both, [...] 25 mg, By Mouth, Daily, Rx by [facility], 0 Refills, [...]
--- OUTSIDE RECORDS SUMMARY | 2022-10-09 09:00 | XMS_ITS | Continuity of Care Document ---
Author Name Unknown Organization [facility] ter Address [address] [place] [id number]- Care Team Providers Care Photograph Mounter Name Role Phone Alexandra JAIN, Imelda Beckham Primary Care Physician Encounter [facility] Date(s): 11/19/19 - 11/19/[address] [address]- [facility] Encounter Diagnosis Neck pain(Final) - 11/19/19 Discharge Disposition: A-D/C Home Attending Physician: Reilly Garner MD Admitting Physician: Reilly Garner MD Referring Physician: Not on Staff, Referring MD Allergies, Adverse Reactions, Alerts Substance Reaction Severity Status NKA Active Immunizations Given and Recorded Vaccine Date Status Refusal Reason tetanus/diphtheria/pertussis, acel(Tdap) 01/20/08 Given Medications ??? meclizine for vertigo ??? meclizine for vertigo, By Mouth, Refills 0, Maintenance, 10/04/19 14:19:00 EDT, Supply Start Date: 10/04/19 Status: Ordered Allopurinol 300 mg, By Mouth, Daily, Rx by [facility], Refills 0, Maintenance,07/13/15 8:58:38 Start Date: 07/13/15 Status: Ordered Flonase 50 mcg/inh nasal spray 1 sprays, Nares, Both, 2 times a day, # 16 Gm, 0 Refills, Maintenance, 03/10/19 13:40:00 EST, [place], [id number], 1 sprays Nares, Both 2 [...] 07/06/17 13:16:32 EDT, Route to Pharmacy Electronically, [id number], [id number] Start Date: 07/06/17 Stop Date: 08/05/17 Status: Ordered Manuel Garcia Ii 0.65% nasal spray 2 sprays, Nares, Both, [...] 25 mg, By Mouth, Daily, Rx by [facility], 0 Refills, [...] to oldest [Reference Range]: 1 2 3 Weight 74.7 kg (11/19/19 6:41 PM) 74.7 kg (11/19/19 9:53 AM) Oxygen Saturation [94-100 %] 98 % (11/19/19 6:41 PM) 99 % (11/19/19 4:36 PM) 99 % (11/19/19 1:22 PM) Pulse Rate [55-90 bpm] 69 bpm (11/19/19 6:41 PM) 70 bpm (11/19/19 4:36 PM) 69 bpm (11/19/19 1:22 PM) Blood Pressure [90-138/55-84 mm Hg] 95/42mm Hg (11/19/19 6:41 PM) 123/82mm Hg (11/19/19 1:22 PM) 111/87mm Hg (11/19/19 12:16 PM) Respiratory Rate [16-30 br/min] 19 br/min (11/19/19 6:41 PM) 16 br/min (11/19/19 4:36 PM) 16 br/min (11/19/19 1:22 PM) Temperature [96.8-100.4 DegF] 98.3 DegF (11/19/19 9:53 AM) Mode of Delivery (Oxygen) Room air (11/19/19 6:41 PM) Room air (11/19/19 4:36 PM) Room air (11/19/19 1:22 PM) Blood pressure sites Arm, left (11/19/19 4:36 PM) Arm, left (11/19/19 1:22 PM) Arm, left (11/19/19 12:16 PM) Temperature Route Oral (11/19/19 9:53 AM) Dry Weight 74.7 kg (11/19/19 6:41 PM) 74.7 kg (11/19/19 9:53 AM) Dry Weight Obtained Via Standing scale (11/19/19 9:53 AM) Social History Social History Type Response Smoking Status Current some day smo ker; Type: Cigarettes; Other: quit 06/18/15; Number of years: 47; entered on: 10/10/15 Sex
--- NOTE | 2022-10-09 09:26 | P.DS_ITS ---
DS: Providers Provider Date of Service: 10/09/22 Primary care physician: None Physician DS: Diagnosis Discharge Diagnosis (1) Neuroforaminal stenosis of lumbar spine: Status: Acute DS: Summary Time Spent with Patient Time attestation: Total time managing care of this patient today __30__ minutes. Discharge coordination time: Less than 30 minutes Quality: Safe Use of Opioids Does Pt have an Active Cancer Diagnosis on the Problem List?: No Quality: Stroke Does the patient have a stroke diagnosis?: No Physical Exam Vital Signs: Vital Signs: Last Vital Signs Temp 96.9 F 10/09/22 09:18 Pulse 66 10/09/22 09:18 Resp 18 10/09/22 09:18 BP 117/73 09/26/22 12:11 Pulse Ox 97 10/09/22 09:18 O2 Del Method Room Air 10/09/22 09:18 BMI result Body Mass Index 31.6 Discharge Plan Discharge Patient Disposition: Home, Self-Care Referrals: Physician,None [Primary Care Provider] - 1 Week Discharge Medications: New cyclobenzaprine 5 mg tablet 10 mg PO TID Qty: 21 0RF Continued methimazole 5 mg tablet 5 mg PO DAILY lisinopril-hydrochlorothiazide 10-12.5 mg tablet 1 tab PO DAILY oxycodone 5 mg tablet 5 - 10 mg PO Q6H PRN (Reason: Pain) Discharge Orders: Discharge Order (Routine); Ordered 10/09/22 Ordered By: Berhane Lott Diet: Advance to usual diet Activity on Discharge: As tolerated Activity Restrictions/Additional Instructions: AFTER YOUR SPINAL SURGERY WE ASK YOU TO OBSERVE THE FOLLOWING RESTRICTIONS/GUIDELINES: ACTIVITY: IT IS NORMAL TO FEEL SOME DISCOMFORT YOU INCREASE YOUR ACTIVITY, BUT THAT JOHN L IMPROVE WITH TIME. WE ASK YOU AVOID HEAVY LIFTING OR ACITIVITIES THAT CAUSE PAIN. A GENERAL RULE, 8LBS IS A SAFE LIMIT FOR LIFTING RIGHT AFTER SURGERY. WALK MUCH YOU FEEL COMFORTABLE BUT NOT TO EXHAUSTION. YOU WILL FEEL EXTRA TIRED THE FIRST FEW DAYS AFTER SURGERY. STAY WELL HYDRATED. IT IS OK TO WALK UP AND DOWN STAIRS YOU MAY RETURN TO DRIVING WHEN YOU ARE OFF NARCOTICS (SUCH VICODIN, OXYCODONE, DILAUDID, ETC), AND YOU ARE BACK TO NORMAL FUNCTIONAL CAPACITY. IF YOU HAVE ANY CONCERNS PLEASE CHECK WITH OFFICE BEFORE DRIVING. RETURN TO WORK IS SPECIFIC TO EACH PATIENT AND EACH SURGERY, SO PLEASE SPEAK WITH YOUR DOCTOR/PA AT FIRST FOLLOW UP. PLEASE BRING PAPERWORK SUCH FMLA AT THAT TIME IF YOU NEED IT FILLED OUT. MEDICATIONS: WE WILL GIVE YOU A SHORT SUPPLY OF NARCOTICS AFTER SURGERY (USUALLY ONE WEEKS WORTH). IF YOU NEED MORE PLEASE CALL THE OFFICE BUT DO NOT USE MORE THAN PRESCRIBED. YOU WILL NEED TO GIVE OUR OFFICE 48 HOURS NOTICE IF YOU NEED NARCOTICS REFILLED AND WE DO NOT FILL NARCOTICS ON WEEKENDS OR EVENINGS. IF YOU ARE ON A NARCOTIC, IT IS A GOOD IDEA TO TAKE A STOOL SOFTENER SUCH COLACE OR SENNA TO AVOID CONSTIPATION IF YOU TAKE BLOOD THINNER SUCH ASPIRIN, PLAVIX, COUMADIN, EFFIENT, ELIQUIS ETC FOR CONDITIONS SUCH AFIB, DVT, PULMONARY EMBOLUS, CORONARY DISEASE, STENTS ETC PLEASE SPEAK WITH YOUR SURGEON ABOUT SPECIFIC DETAILS TO WHEN YOU CAN RESUME THESE MEDICATIONS. YOU CAN RESUME NSAIDS ON POST OP DAY 1 (EG: MOTRIN, NAPROXEN, ETC). FOLLOW UP: PLEASE CALL THE OFFICE, , AFTER SURGERY TO ARRANGE A 3 WEEK FOLLOW UP FOR WOUND CHECK. WOUND CARE: YOU MAY REMOVE YOUR DRESSING ON THE FIRST DAY AFTER SURGERY. YOU MAY LEAVE OPEN TO AIR. PLEASE DO NOT REMOVE THE STERI STRIPS UNDERNEATH. THEY WILL FALL OFF ON THEIR OWN IN ONE WEEK. IT IS NORMAL FOR THE WOUND TO OOZE OR BE BLOODY FOR A FEW DAYS AFTER SURGERY. IF THIS HAPPENS JUST PLACE NEW DRESSING OVER IT TO AVOID STAINING CLOTHES. YOU MAY SHOWER ON POST OP DAY # 1 WE ASK THAT YOU DO NOT LET THE WATER SOAK THE WOUND. IF IT DOES GET WET, JUST TOWEL DRY LIGHTLY. PLEASE DO NOT SCRUB YOUR INCISION OR PLACE ANY TYPE OF CHEMICAL/OINTMENT ON THE WOUND. NO TUB BATHS, POOLS OR JACUZZIS FOR ONE MONTH. IF YOU HAVE ANY LEAKING OR REDNESS FROM YOUR WOUND, OR FEVERS, PLEASE CALL OFFICE
[2022-10-09] MEDS: Lactated Ringers 1,000 ML 100 ML IVCONT (09:49)
[2022-10-09] MEDS: methocarbamoL 750 MG TABLET PO (09:57)
[2022-10-09] MEDS: Gabapentin 300 MG CAPSULE PO (09:57)
--- NOTE | 2022-10-09 11:05 | MHC.SHP ---
Pre-Procedural Eval Section A Date of Service: 10/09/22 The patient is an INPATIENT: No The History & Physical has been completed within 30 days and I have reviewed it.: No Section B Chief Complaint: Spinal stenosis,Radiculopathy Details of Present Illness: left L5 radiculopathy Relevant Family History (Specify if Yes): No Relevant Social History: Tobacco Use Present Medications: see Short Stay Collaborative assessment Medical History: No relevant PMH History of Previous Operations: No relevant previous surgery Allergies: Allergies Allergy/AdvReac Type Severity Reaction Status Date / Time No Known Allergies Allergy Verified 09/26/22 12:07 Review of Systems Sugical H&P ROS: Negative: Constitution, Cardiovascular, Respiratory, Neurological, Psychiatric, Hem-Onc, Allergic/Immunologic, Gastrointestinal, Genitourinary, Musculoskeletal, Integumentary, Endocrine and Eyes/Ears/Nose/Throat Exam Surgical H&P Exam: Not Evaluated: HEENT, Not Evaluated: Heart, Not Evaluated: Lungs, Not Evaluated: Extremities, Not Evaluated: Abdomen, Not Evaluated: Skin and Not Evaluated: Neurological Plan Diagnosis/Plan: Unchanged (Left L5 laminotomy/foraminotomy) I have reviewed the history and physical and performed a pertinent physical examination on my patient. No changes have occurred unless specified. Time Spent With Patient Time: Total time managing care of this patient today ___10_ minutes.
--- NOTE | 2022-10-09 13:08 | P.OP_ITS ---
Operative Note Operative Note Date of Service: 10/09/22 Narrative: Preoperative Diagnosis: bilateral L5 neuroforaminal stenosis with bilateral L5 radiculopathy Operation: bilateral L5 partial laminectomy, Partial facetectomy and foraminotomy with use of microscope Consent Informed Consent was obtained for this operation. I have explained the nature, purpose and benefits of the operation. I have discussed the risks and benefit of the operation including possible complications or adverse events with patient/family. Alternative(s) were discussed with the patient with their relative benefits and risks as well as the consequences of not accepting the operation were included in obtaining consent. Surgeon: JENNIFER PEREZ MD, PHD Procedure Assisted By: Artemio Lott PA-C Description of Procedure this 66-year-old female was originally scheduled for left L5 foraminotomy. However, in the holding area she stated she has bilateral symptoms. therefore offered her a bilateral L5 nerve root decompression. The procedure complications were explained. The patient was consented. The patient was brought to the operating room and endotracheally intubated. The patient was turned in prone position on the Wilman frame. Prep and drape was done followed by timeout. A mid lumbar incision was made followed by release of the paravertebral muscle bilaterally to expose the L5 laminae and facet joints. An intraoperative x-ray was obtained to confirm the correct level. The microscope was brought in. I started decompression on the left side.The high-speed drill was used to do a L5 Partial laminectomy until flavum ligament was reached. a 2. Kerrison was used to expand the laminectomy near flush to the pedicles and to include a partial facetectomy. The flavum and was opened and resected and the origin of the L5 nerve root was identified. The facetectomy was extended and with a foraminotomy Kerrison and L5 foraminotomy Kerrison to decompress the L5 nerve root. Moderate compression was present. Hemostasis was done. Then attention was turned to the right side where a similar procedure was performed to decompress the L5 nerve root. No significant stenosis was present on the right side.The microscope was removed. Hemostasis was done. The physician construction management assistant close the incision in 2 layers. Steri-Strips were used to approximate incision. An OpSite with Tegaderm was used to cover the incision. All sponge needle counts were correct. Patient was extubated and transported in stable is to recovery room. Anesthesia: General Estimated Blood Loss (ml): 20 mL Complications: None Duration of Surgery: Under 60 Minutes Postoperative Plan: Discharge to home
== END 2022-10-09 15:00 | disposition home or self-care (01) ==
PROVIDERS: Nurse Practitioner; Visit Provider Neurological Surgery
PROC: (CPT 63047; principal; 2022-10-09 11:20)
DX: M48.061 Spinal stenosis, lumbar region without neurogenic claudication (principal); M54.16 Radiculopathy, lumbar region; M54.50 Low back pain, unspecified; M54.12 Radiculopathy, cervical region; I10 Essential (primary) hypertension; E03.9 Hypothyroidism, unspecified; Z79.899 Other long term (current) drug therapy; F17.210 Nicotine dependence, cigarettes, uncomplicated
CPT/HCPCS: 63047; 36415; 80048; 85027; 93005; J0131; J0690; J1100; J1170; J1885; J2371; J2405

== ENCOUNTER → 2022-10-09 08:53 | Outpatient (BNV) | payer MEDICARE, MEDICAID, SELFPAY | PROVIDERS: Visit Provider Physician Assistant | DX: M48.061 Spinal stenosis, lumbar region without neurogenic claudication (principal) | CPT/HCPCS: 63047 ==

== ENCOUNTER 2022-10-31 09:16 | Outpatient (AMB) | payer MEDICARE, MEDICAID, SELFPAY ==
--- NOTE | 2022-10-31 09:23 | A.SPINEOV_ITS ---
Intake Intake Visit Reasons: 1st post op Intake Note: Ms. Hernández is here today for her 1st post-op. Traffic Or System Dispatcher Required: No Allergies No Known Allergies Allergy (Verified 09/26/22 12:07) Assessment & Plan Assessment & Plan (1) Lumbar radiculopathy: Code(s): M54.16 - Radiculopathy, lumbar region Plan The patient is 59-year-old female comes in for 1st postoperative visit. She was suffering from a L5 radiculopathy due to neuroforaminal stenosis.? She she had tried all forms of conservative treatment without avail.? She had a bilateral L5 foraminotomy completed on October 09. She states that she is doing much better postoperatively. She does still have some mild nonspecific numbness on her right lateral thigh, but does feel that this is improving. She reports no leg weakness, burning, tingling or pain. She does have some nonspecific back pain still but feels that it is manageable compared to the pain that she had pre- operatively. She also stated that it is still difficult for her to sit for prolonged periods of time but she does feel like that is getting better as time progresses as well. The patient is able to rise from a seated position without difficulty, ambulates well, has no obvious neurological deficits. Her incision site is clean, dry, intact and well-healing with no signs of edema/erythema. CN II-XII grossly intact. Overall the patient is doing very well compared to exam/complaints preoperatively. She will be seen again in clinic in 6 weeks for another follow-up and if she is still doing well she may be discharged as a patient. Total amount of time spent in this visit was 20 minutes in discussion of symptoms, operative X-ray imaging results review, and subsequent plan of care. Berhane Herrera MD,PhD [facility] Coding Level of Care Code Est Pt Level 3 (10265) Diagnoses Lumbar radiculopathy M54.16
== END 2022-10-31 09:54 | disposition home or self-care (01) ==
PROVIDERS: Visit Provider Physician Assistant
DX: M54.16 Radiculopathy, lumbar region (principal)
CPT/HCPCS: 99024

== ENCOUNTER → 2022-10-31 09:16 | Outpatient (BNVA) | payer MEDICARE, MEDICAID, SELFPAY | PROVIDERS: Visit Provider Physician Assistant | DX: M54.16 Radiculopathy, lumbar region (principal) | CPT/HCPCS: 99212 ==

== ENCOUNTER 2023-02-04 11:06 | Outpatient (AMB) | payer MEDICARE, MEDICAID, SELFPAY ==
--- NOTE | 2023-02-04 11:52 | A.SPINEOV_ITS ---
Intake Intake Visit Reasons: had sx 10/21 and is having back pain Intake Note: Mrs. Hernández is here today c/o recurrent low back pain. Plane Tableman Required: No Allergies No Known Allergies Allergy (Verified 09/26/22 12:07) Assessment & Plan Assessment & Plan (1) Lumbar radiculopathy: Code(s): M54.16 - Radiculopathy, lumbar region Plan Sylvia comes in today as an established patient with a new concern/complaint. She is known to our service after having a bilateral L5 lumbar decompression completed in September of this year. She reports that for the last 1 month she has been having bilateral stabbing/sharp pains in her feet encompassing both the bottom and top of her feet. She also endorses burning in her bilateral toes, and is unable to localize the burning to any specific toes. She continues to also report longstanding right-sided hip numbness which she had prior to her surgery. Most concerning of her symptoms is her pain at the bottom of her feet which she reports prevents her from getting up out of bed or off of the couch. She reports that she has tried utilizing Tylenol, ibuprofen, ice, heat, [id number] pain patches all without alleviation of symptoms. Physical exam: Patient is able to ambulate well, rises from a seated position without difficulty. Mobility is intact. Some numbness reported over right thigh, otherwise sensation grossly intact. Sylvia was encouraged to complete a full course of physical therapy and then be re-evaluated in our office for any persisting symptoms after physical therapy. We may order repeat lumbar MRI if her symptoms continue to persist. Dependent on the outcome of her MRI we may also need to order an EMG to rule out peripheral neuropathy. Total amount of time spent in this visit was 25 minutes in discussion of symptoms, XR lumbar spine imaging results and subsequent plan of care. Berhane Herrera MD,PhD [facility] Orders: Orders PT Evaluation and Treatment Today M54.16 - Radiculopathy, lumbar region Coding Level of Care Code New Pt Level 2 (10172) Diagnoses Lumbar radiculopathy M54.16
== END 2023-02-04 12:18 | disposition home or self-care (01) ==
PROVIDERS: Visit Provider Neurological Surgery
DX: M54.16 Radiculopathy, lumbar region (principal)
CPT/HCPCS: 99213

== ENCOUNTER → 2023-02-04 11:06 | Outpatient (BNVA) | payer MEDICARE, MEDICAID, SELFPAY | PROVIDERS: Visit Provider Neurological Surgery | DX: M54.16 Radiculopathy, lumbar region (principal) | CPT/HCPCS: 99212 ==